=== PATIENT | male | born 1960 | race Caucasian/White ===

== ENCOUNTER → 2016-08-30 | Outpatient (CLI) | payer BC ==
[~2016-08-30] MED LIST: ALPRAZOLAM0.5 MG PO; DEXILANT60 MG PO; FLOMAX 0.4 MG0.4 MG PO; LOVENOX80 MG/0.8 SQ; PHENERGAN 25 MG25 M1 PO; ZANTAC150 MG PO; ZOFRAN 8 MG TAB8 MG SL; [UNRECOGNIZED DRUG - SUPPLY]
== END ==
LOC: KOH-I 14:30
DX: R10.32 Left lower quadrant pain (principal); M79.89 Other specified soft tissue disorders
CPT/HCPCS: 74176

== ENCOUNTER → 2016-09-08 | Outpatient (CLI) | payer BC | LOC: KOH-I 14:43 | DX: R19.03 Right lower quadrant abdominal swelling, mass and lump (principal) | CPT/HCPCS: 74177; Q9963 ==

== ENCOUNTER 2016-09-14 07:28 | Emergency (ER) | payer BC ==
[2016-09-14 08:08] LABS: HEMOGLOBIN 16.8 gm/dl (14.0-17.5); RED BLOOD COUNT 5.52 M/UL (4.20-5.50)
[2016-09-14 08:25] LABS: BUN/CREATININE RATIO 13 (0-10)
[2017-01-07] MEDS ORDERED: DEXILANT60 MG PO (09:04)
[2017-01-07] MEDS ORDERED: FLOMAX 0.4 MG0.4 MG PO (09:04)
[2017-01-07] MEDS ORDERED: LOVENOX80 MG/0.8 SQ (09:05)
[2017-01-07] MEDS ORDERED: ZOFRAN 8 MG TAB8 MG SL (09:06)
[2017-01-07] MEDS ORDERED: PHENERGAN 25 MG25 M1 PO (09:06)
[2017-01-07] MEDS ORDERED: ZANTAC150 MG PO (09:07)
[2017-01-07] MEDS ORDERED: ALPRAZOLAM0.5 MG PO (09:08)
[2017-01-07] MEDS ORDERED: [UNRECOGNIZED DRUG - SUPPLY] (09:09)
== END 2016-09-14 10:20 | disposition home or self-care (01) ==
LOC: ER1 07:28
PROVIDERS: Preventive Medicine Occupational Medicine
DX: R10.31 Right lower quadrant pain (principal)
CPT/HCPCS: 36415; 74000; 80053; 81001; 82150; 83690; 85025; 86140; 96361; 96374; 96376; 99284; J2405

== ENCOUNTER 2016-09-18 16:57 | Emergency (ER) | payer BC ==
[2016-09-18 18:46] LABS: HEMOGLOBIN 16.2 gm/dl (14.0-17.5); RED BLOOD COUNT 5.43 M/UL (4.20-5.50); WHITE BLOOD COUNT 9.2 K/UL (4.5-11.0)
[2016-09-18 19:07] LABS: BUN/CREATININE RATIO 14 (0-10)
[2017-01-07] MEDS ORDERED: FLOMAX 0.4 MG0.4 MG PO (09:04)
[2017-01-07] MEDS ORDERED: DEXILANT60 MG PO (09:04)
[2017-01-07] MEDS ORDERED: LOVENOX80 MG/0.8 SQ (09:05)
[2017-01-07] MEDS ORDERED: ZOFRAN 8 MG TAB8 MG SL (09:06)
[2017-01-07] MEDS ORDERED: PHENERGAN 25 MG25 M1 PO (09:06)
[2017-01-07] MEDS ORDERED: ZANTAC150 MG PO (09:07)
[2017-01-07] MEDS ORDERED: ALPRAZOLAM0.5 MG PO (09:08)
[2017-01-07] MEDS ORDERED: [UNRECOGNIZED DRUG - SUPPLY] (09:09)
== END 2016-09-18 20:06 | disposition home or self-care (01) ==
LOC: ER1 16:57
PROVIDERS: Preventive Medicine Occupational Medicine
DX: R33.9 Retention of urine, unspecified (principal)
CPT/HCPCS: 36415; 51702; 80048; 81001; 85025; 99283; J7030

== ENCOUNTER 2016-09-24 21:59 | Emergency (ER) | payer BC ==
[2017-01-07] MEDS ORDERED: FLOMAX 0.4 MG0.4 MG PO (09:04)
[2017-01-07] MEDS ORDERED: DEXILANT60 MG PO (09:04)
[2017-01-07] MEDS ORDERED: LOVENOX80 MG/0.8 SQ (09:05)
[2017-01-07] MEDS ORDERED: ZOFRAN 8 MG TAB8 MG SL (09:06)
[2017-01-07] MEDS ORDERED: PHENERGAN 25 MG25 M1 PO (09:06)
[2017-01-07] MEDS ORDERED: ZANTAC150 MG PO (09:07)
[2017-01-07] MEDS ORDERED: ALPRAZOLAM0.5 MG PO (09:08)
[2017-01-07] MEDS ORDERED: [UNRECOGNIZED DRUG - SUPPLY] (09:09)
== END 2016-09-24 23:35 | disposition home or self-care (01) ==
LOC: ER1 21:59
DX: N40.1 Benign prostatic hyperplasia with lower urinary tract symptoms (principal); R33.8 Other retention of urine; I10 Essential (primary) hypertension
CPT/HCPCS: 81001; 99283